=== PATIENT | male | born 1980 | race Caucasian/White ===

== ENCOUNTER 2021-10-01 21:08 | Inpatient (IN) | payer OTHER ==
[2021-10-01] MEDS ORDERED: LIDOCAINE HCL 2% JELLY (5 ML/TUBE) ONE (22:11)
[2021-10-01] MEDS ORDERED: LIDOCAINE HCL 2% JELLY (5 ML/TUBE) TP ONE (22:13)
[2021-10-01 22:38] LABS: BASO % 0.7 % (0-2.0); EOS % 2.8 % (0-4.5); HEMOGLOBIN 13.1 GM/dL (11.7-16.9); LYMPH % 20.8 % (8-40); MCH 29.2 pg (25.7-33.7); MCHC 34.4 g/dl (32.0-35.9); MEAN CELL VOLUME 84.8 fl (80-96); MEAN PLT VOLUME 7.8 fl (7.5-11.1); MONO % 6.8 % (3.8-10.2); NEUT % 68.9 % (42.8-82.8); PLATELET COUNT 263 10^3/uL (134-434); RBC 4.48 M/mm3 (4.00-5.60); RDW 12.5 % (11.9-15.9); WHITE BLOOD COUNT 10.4 K/mm3 (4.0-10.0)
[2021-10-01 22:56] LABS: CHLORIDE 100 mmol/L (98-107); SODIUM 138 mmol/L (136-145)
[2021-10-01 22:58] LABS: CALCIUM 8.3 mg/dL (8.5-10.1)
[2021-10-01 22:59] LABS: ALBUMIN 3.5 g/dl (3.4-5.0); BLOOD UREA NITROGEN 28.6 mg/dL (7-18); CO2 32 mmol/L (21-32); GLUCOSE,RANDOM 148 mg/dL (74-106)
[2021-10-01 23:02] LABS: CREATININE 2.8 mg/dL (0.55-1.3); SGOT/AST 37 U/L (15-37); SGPT/ALT 35 U/L (13-61)
[2021-10-01 23:04] LABS: BILIRUBIN,TOTAL 0.4 mg/dL (0.2-1)
[2021-10-01 23:05] LABS: ALK PHOS 91 U/L (45-117)
[2021-10-01] MEDS ORDERED: TETRACAINE/BENZOCAINE/BUTAMBEN 20 GM SPR TP ONE (23:06)
[2021-10-01] MEDS ORDERED: LABETALOL HCL 5 MG/1 ML (100MG/20 ML VIAL) IVPUSH ONE (23:14)
[2021-10-01] MEDS ORDERED: LABETALOL HCL 5 MG/1 ML (200MG/40ML VIAL) IVPB ONE (23:25)
[2021-10-02 00:13] LABS: ANION GAP 7 MMOL/L (8-16)
[2021-10-02] MEDS ORDERED: LABETALOL HCL 5 MG/1 ML (100MG/20 ML VIAL) IVPUSH ONE (00:34)
[2021-10-02] MEDS ORDERED: POTASSIUM CHLORIDE TABS 20 MEQ TABLET.ER (FP) PO ONE ×7 (00:55→08:26)
[2021-10-02 01:55] LABS: EPI CELLS 2 /uL (0-25.1); HYALINE CASTS 0 /uL (0-3.1); PH,URINE 6.5 (5.0-8.0); URINE APPEARANCE CLEAR; URINE BACTERIA 6 /uL (0-1359); URINE BILIRUBIN NEGATIVE (NEGATIVE); URINE COLOR YELLOW; URINE GLUCOSE (UA) NEGATIVE (NEGATIVE); URINE KETONE NEGATIVE (NEGATIVE); URINE LEUK ESTERASE NEGATIVE (NEGATIVE); URINE NITRITE NEGATIVE (NEGATIVE); URINE PROTEIN 2+ (NEGATIVE); URINE RBC 15 /uL (0-23.9); URINE UROBILINOGEN 0.2 mg/dL (0.2-1.0); URINE WBC 2 /uL (0-25.8)
[2021-10-02 02:15] LABS: MAGNESIUM 2.1 mg/dL (1.8-2.4)
[2021-10-02] MEDS ORDERED: LABETALOL IN NACL, ISO-OSMOTIC 300 MG/300 ML BAG IV SCH (04:30)
[2021-10-02] MEDS ORDERED: SODIUM CHLORIDE IV SCH (04:30)
[2021-10-02] MEDS ORDERED: LABETALOL HCL IV SCH (04:30)
[2021-10-02] MEDS ORDERED: KCL 10 MEQ IVPB 10 MEQ/100 ML INFUS.BAG IVPB ONE ×3 (05:13→08:49)
[2021-10-02] MEDS ORDERED: HEPARIN NA (PORCINE) 5,000 UNITS/ML 1ML VIAL ONE (05:13)
[2021-10-02] MEDS: KCL 10 MEQ IVPB 10 MEQ/100 ML INFUS.BAG IVPB SCH ×3 (05:45→09:00)
[2021-10-02] MEDS ORDERED: HEPARIN NA (PORCINE) 5,000 UNITS/ML 1ML VIAL SQ SCH (06:00)
[2021-10-02 06:38] LABS: HEMATOCRIT 36.2 % (35.4-49); HEMOGLOBIN 12.4 GM/dL (11.7-16.9); MCH 29.2 pg (25.7-33.7); MCHC 34.2 g/dl (32.0-35.9); MEAN CELL VOLUME 85.4 fl (80-96); MEAN PLT VOLUME 8.3 fl (7.5-11.1); PLATELET COUNT 228 10^3/uL (134-434); RBC 4.23 M/mm3 (4.00-5.60); WHITE BLOOD COUNT 9.5 K/mm3 (4.0-10.0)
[2021-10-02 06:49] LABS: ALBUMIN 3.4 g/dl (3.4-5.0); CALCIUM 7.8 mg/dL (8.5-10.1)
[2021-10-02 06:50] LABS: BLOOD UREA NITROGEN 27.1 mg/dL (7-18)
[2021-10-02 06:53] LABS: CREATININE 2.5 mg/dL (0.55-1.3); PHOSPHOROUS 3.2 mg/dL (2.5-4.9)
[2021-10-02 06:54] LABS: BILIRUBIN,TOTAL 0.5 mg/dL (0.2-1); TOT PROT 6.8 g/dl (6.4-8.2)
[2021-10-02] MEDS ORDERED: KCL 10 MEQ IVPB 10 MEQ/100 ML INFUS.BAG IVPB SCH (08:15)
[2021-10-02] MEDS ORDERED: hydrALAZINE HCL 10 MG TABLET PO SCH (10:00)
[2021-10-02] MEDS ORDERED: amLODIPine BESYLATE 5 MG TABLET (FP) PO SCH (10:00)
[2021-10-02] MEDS ORDERED: amLODIPine BESYLATE 5 MG TABLET (FP) ONE (10:23)
[2021-10-02] MEDS: hydrALAZINE HCL 10 MG TABLET PO SCH ×2 (15:00→22:24)
[2021-10-02] MEDS ORDERED: SODIUM CHLORIDE NASAL SPRAY 44 ML BOTTLE NS PRN (16:50)
[2021-10-03 04:23] VITALS: BMI 28.8
[2021-10-03] MEDS: hydrALAZINE HCL 10 MG TABLET PO SCH ×3 (06:43→21:04)
[2021-10-03] MEDS: amLODIPine BESYLATE 10 MG TABLET (FP) PO SCH (09:35)
[2021-10-03 12:46] LABS: BASO % 0.2 % (0-2.0); HEMOGLOBIN 13.2 GM/dL (11.7-16.9); LYMPH % 12.1 % (8-40); MCH 29.2 pg (25.7-33.7); MCHC 33.8 g/dl (32.0-35.9); MEAN CELL VOLUME 86.6 fl (80-96); MEAN PLT VOLUME 8.5 fl (7.5-11.1); NEUT % 79.7 % (42.8-82.8); PLATELET COUNT 253 10^3/uL (134-434); WHITE BLOOD COUNT 8.3 K/mm3 (4.0-10.0)
[2021-10-03 13:12] LABS: ALBUMIN 3.5 g/dl (3.4-5.0); MAGNESIUM 2.2 mg/dL (1.8-2.4)
[2021-10-03 13:15] LABS: BILIRUBIN,TOTAL 0.5 mg/dL (0.2-1); CREATININE 2.3 mg/dL (0.55-1.3)
[2021-10-03 13:16] LABS: TOT PROT 6.9 g/dl (6.4-8.2)
[2021-10-03] MEDS: LABETALOL HCL 100 MG TABLET (FP) PO SCH ×2 (14:26→21:04)
[2021-10-03] MEDS: POTASSIUM CHLORIDE TABS 20 MEQ TABLET.ER (FP) PO SCH ×2 (15:50→21:04)
[2021-10-04] MEDS: hydrALAZINE HCL 10 MG TABLET PO SCH ×4 (05:57→17:50)
[2021-10-04] MEDS: LABETALOL HCL 100 MG TABLET (FP) PO SCH ×3 (08:59→21:03)
[2021-10-04] MEDS: amLODIPine BESYLATE 10 MG TABLET (FP) PO SCH (09:01)
[2021-10-04] MEDS: POTASSIUM CHLORIDE TABS 20 MEQ TABLET.ER (FP) PO SCH (09:01)
[2021-10-04 09:15] LABS: BASO % 0.6 % (0-2.0); EOS % 3.9 % (0-4.5); HEMATOCRIT 38.8 % (35.4-49); HEMOGLOBIN 13.1 GM/dL (11.7-16.9); MCH 29.2 pg (25.7-33.7); MCHC 33.9 g/dl (32.0-35.9); MEAN PLT VOLUME 8.2 fl (7.5-11.1); MONO % 6.7 % (3.8-10.2); NEUT % 67.8 % (42.8-82.8); PLATELET COUNT 255 10^3/uL (134-434); WHITE BLOOD COUNT 8.2 K/mm3 (4.0-10.0)
[2021-10-04 09:37] LABS: ALBUMIN 3.5 g/dl (3.4-5.0); CALCIUM 8.2 mg/dL (8.5-10.1)
[2021-10-04 09:38] LABS: BLOOD UREA NITROGEN 26.7 mg/dL (7-18); MAGNESIUM 2.2 mg/dL (1.8-2.4)
[2021-10-04 09:41] LABS: CREATININE 2.5 mg/dL (0.55-1.3)
[2021-10-04 09:42] LABS: BILIRUBIN,TOTAL 0.7 mg/dL (0.2-1)
[2021-10-05] MEDS: hydrALAZINE HCL 10 MG TABLET PO SCH ×3 (00:46→11:26)
[2021-10-05 09:06] LABS: BASO % 0.4 % (0-2.0); EOS % 3.4 % (0-4.5); HEMATOCRIT 37.2 % (35.4-49); HEMOGLOBIN 12.7 GM/dL (11.7-16.9); LYMPH % 17.3 % (8-40); MCH 29.3 pg (25.7-33.7); MCHC 34.1 g/dl (32.0-35.9); MEAN PLT VOLUME 8.5 fl (7.5-11.1); MONO % 7.1 % (3.8-10.2); NEUT % 71.8 % (42.8-82.8); PLATELET COUNT 270 10^3/uL (134-434); RBC 4.33 M/mm3 (4.00-5.60); RDW 12.8 % (11.9-15.9); WHITE BLOOD COUNT 8.7 K/mm3 (4.0-10.0)
[2021-10-05 09:36] LABS: ALBUMIN 3.2 g/dl (3.4-5.0)
[2021-10-05 09:37] LABS: BLOOD UREA NITROGEN 29.8 mg/dL (7-18); CALCIUM 8.1 mg/dL (8.5-10.1); MAGNESIUM 2.1 mg/dL (1.8-2.4)
[2021-10-05 09:39] LABS: CREATININE 2.4 mg/dL (0.55-1.3)
[2021-10-05 09:41] LABS: BILIRUBIN,TOTAL 0.7 mg/dL (0.2-1); TOT PROT 6.6 g/dl (6.4-8.2)
[2021-10-05] MEDS: LABETALOL HCL 100 MG TABLET (FP) PO SCH (10:02)
[2021-10-05] MEDS: amLODIPine BESYLATE 10 MG TABLET (FP) PO SCH (10:03)
[2021-10-05 16:20] VITALS: BP 153/99; PULSE 85; TEMP 98.2
[2021-10-05] MEDS ORDERED: ATORVASTATIN CA 40 MG TABLET (FP) PO SCH (22:00)
[2021-10-06 10:07] LABS: ANTIGLOMERULAR BASEMENT MEN.AB 4 units (0-20)
[2021-10-06 17:07] LABS: ATYPICAL pANCA <1:20 titer (Neg:<1:20); C-ANCA <1:20 titer (Neg:<1:20)
[2021-10-08 14:07] LABS: RENIN ACTIVITY(PRA) 5.854 ng/mL/hr (0.167-5.380)
== END 2021-10-05 16:37 | disposition home or self-care (01) | DRG 199 ==
LOC: JER 21:08 → JERBED 10-02 04:43 → J8W 10-02 19:40
PROVIDERS: ADMIT Internal Medicine; ATTEND Nurse Practitioner Acute Care
DX: I16.0 Hypertensive urgency (principal); R04.0 Epistaxis; E87.6 Hypokalemia; N17.9 Acute kidney failure, unspecified; I12.9 Hypertensive chronic kidney disease with stage 1 through stage 4 chronic kidney disease, or unspecified chronic kidney disease; N18.9 Chronic kidney disease, unspecified; R77.8 Other specified abnormalities of plasma proteins; E78.00 Pure hypercholesterolemia, unspecified
CPT/HCPCS: 36415; 71045-TC-FY; 76775-TC; 80048; 80053; 80061; 81003; 82088; 82550; 82553; 83036; 83516; 83520; 83735; 83970; 84100; 84244; 84443; 84484; 85025; 85027; 86038; 86160; 86225; 86256; 93005; 93010; 93306-TC; 99285-25; C9803; J1644; U0003; U0005

== ENCOUNTER 2023-01-29 22:27 | Observation (INO) | payer OTHER ==
[2023-01-29 22:37] VITALS: BMI 29.7
[2023-01-29] MEDS ORDERED: dilTIAZem HCL 125 MG/25 ML - 25 ML VIAL ONE (22:58)
[2023-01-29 23:01] LABS: EOS % 1.7 % (0-4.5); HEMATOCRIT 40.9 % (35.4-49); HEMOGLOBIN 13.9 GM/dL (11.7-16.9); LYMPH % 12.5 % (8-40); MCH 29.1 pg (25.7-33.7); MCHC 34.1 g/dl (32.0-35.9); MEAN CELL VOLUME 85.4 fl (80-96); MEAN PLT VOLUME 8.3 fl (7.5-11.1); NEUT % 77.8 % (42.8-82.8); PLATELET COUNT 226 10^3/uL (134-434); RBC 4.79 M/mm3 (4.00-5.60); RDW 13.1 % (11.9-15.9); WHITE BLOOD COUNT 12.8 K/mm3 (4.0-10.0)
[2023-01-29 23:08] LABS: INR 1.12 (0.83-1.09)
[2023-01-29 23:11] LABS: ACTIVATED PTT 36.5 SECONDS (25.2-36.5)
[2023-01-29] MEDS ORDERED: dilTIAZem HCL 50 MG/10 ML - 10 ML VIAL IVPUSH ONE ×2 (23:11→23:48)
[2023-01-29 23:15] LABS: CHLORIDE 98 mmol/L (98-107); SODIUM 135 mmol/L (136-145)
[2023-01-29 23:17] LABS: CALCIUM 8.2 mg/dL (8.5-10.1)
[2023-01-29 23:18] LABS: ALBUMIN 3.7 g/dl (3.4-5.0); CO2 30 mmol/L (21-32); GLUCOSE,RANDOM 199 mg/dL (74-106); MAGNESIUM 2.3 mg/dL (1.8-2.4)
[2023-01-29 23:21] LABS: BLOOD UREA NITROGEN 44.2 mg/dL (7-18); CREATININE 3.8 mg/dL (0.55-1.3); SGOT/AST 51 U/L (15-37); SGPT/ALT 46 U/L (13-61)
[2023-01-29 23:22] LABS: TOT PROT 7.3 g/dl (6.4-8.2)
[2023-01-29 23:23] LABS: BILIRUBIN,TOTAL 0.6 mg/dL (0.2-1)
[2023-01-29 23:24] LABS: ALK PHOS 82 U/L (45-117); ANION GAP 7 MMOL/L (8-16); POTASSIUM 2.9 mmol/L (3.5-5.1)
[2023-01-29] MEDS ORDERED: POTASSIUM CHLORIDE TABS 20 MEQ TABLET.ER (FP) PO ONE ×3 (23:26→23:35)
[2023-01-29] MEDS ORDERED: LABETALOL HCL 100 MG TABLET (FP) PO ONE (23:30)
[2023-01-29] MEDS ORDERED: hydrALAZINE HCL 10 MG TABLET PO ONE (23:31)
[2023-01-29] MEDS ORDERED: LABETALOL HCL 100 MG TABLET (FP) ONE (23:35)
[2023-01-29] MEDS ORDERED: hydrALAZINE HCL 10 MG TABLET ONE (23:36)
[2023-01-30] MEDS: KCL 10 MEQ IVPB 10 MEQ/100 ML INFUS.BAG IVPB SCH ×3 (00:07→02:41)
[2023-01-30] MEDS ORDERED: KCL 10 MEQ IVPB 10 MEQ/100 ML INFUS.BAG IVPB ONE (03:05)
[2023-01-30] MEDS ORDERED: dilTIAZem HCL 50 MG/10 ML - 10 ML VIAL ONE (03:34)
[2023-01-30] MEDS ORDERED: dilTIAZem HCL 125 MG/25 ML - 25 ML VIAL ONE ×2 (03:34)
[2023-01-30] MEDS ORDERED: METOPROLOL TARTRATE 25 MG TABLET (FP) PO SCH (03:45)
[2023-01-30] MEDS ORDERED: METOPROLOL TARTRATE 25 MG TABLET (FP) ONE (04:07)
[2023-01-30 04:48] LABS: EPI CELLS 3 /uL (0-25.1); HYALINE CASTS 0 /uL (0-3.1); PH,URINE 6.5 (5.0-8.0); URINE APPEARANCE CLEAR; URINE BACTERIA 4 /uL (0-1359); URINE BILIRUBIN NEGATIVE (NEGATIVE); URINE COLOR YELLOW; URINE GLUCOSE (UA) NEGATIVE (NEGATIVE); URINE KETONE NEGATIVE (NEGATIVE); URINE LEUK ESTERASE NEGATIVE (NEGATIVE); URINE NITRITE NEGATIVE (NEGATIVE); URINE PROTEIN 2+ (NEGATIVE); URINE RBC 16 /uL (0-23.9); URINE UROBILINOGEN 0.2 mg/dL (0.2-1.0); URINE WBC 2 /uL (0-25.8)
[2023-01-30 04:52] LABS: OPIATES, URI NEGATIVE (NEGATIVE); URINE AMPHETAMINES NEGATIVE (NEGATIVE)
[2023-01-30 04:53] LABS: METHADONE, UR NEGATIVE (NEGATIVE); PHENCYCLIDINE,URINE NEGATIVE (NEGATIVE)
[2023-01-30 05:01] LABS: COCAINE, UR NEGATIVE (NEGATIVE); URINE BARBITURATES NEGATIVE (NEGATIVE); URINE BENZODIAZEPINES NEGATIVE (NEGATIVE)
[2023-01-30 08:26] LABS: BASO % 0.7 % (0-2.0); EOS % 1.4 % (0-4.5); HEMATOCRIT 38.5 % (35.4-49); HEMOGLOBIN 13.3 GM/dL (11.7-16.9); LYMPH % 14.8 % (8-40); MCH 29.5 pg (25.7-33.7); MCHC 34.4 g/dl (32.0-35.9); MEAN CELL VOLUME 85.6 fl (80-96); MEAN PLT VOLUME 8.6 fl (7.5-11.1); MONO % 5.9 % (3.8-10.2); NEUT % 77.2 % (42.8-82.8); PLATELET COUNT 207 10^3/uL (134-434); RDW 13.1 % (11.9-15.9); WHITE BLOOD COUNT 9.3 K/mm3 (4.0-10.0)
[2023-01-30 08:48] LABS: POTASSIUM 3.4 mmol/L (3.5-5.1)
[2023-01-30 08:49] LABS: CALCIUM 7.8 mg/dL (8.5-10.1)
[2023-01-30 08:50] LABS: BLOOD UREA NITROGEN 41.7 mg/dL (7-18)
[2023-01-30 08:53] LABS: CREATININE 3.2 mg/dL (0.55-1.3)
[2023-01-30] MEDS: LACTATED RINGERS SOLUTION 1,000 ML/1,000 ML INFUS.BAG IV SCH ×2 (10:26→20:00)
[2023-01-30] MEDS: LABETALOL HCL 200 MG TABLET (FP) PO SCH ×2 (10:26→21:10)
[2023-01-30] MEDS: amLODIPine BESYLATE 10 MG TABLET (FP) PO SCH (10:26)
[2023-01-30] MEDS: ASPIRIN COATED 81 MG TABLET.EC PO SCH (10:27)
[2023-01-30] MEDS: hydrALAZINE HCL 25 MG TABLET (FP) PO SCH ×2 (14:34→21:10)
[2023-01-30] MEDS ORDERED: ATORVASTATIN CA 40 MG TABLET (FP) PO SCH (22:00)
[2023-01-31] MEDS: hydrALAZINE HCL 25 MG TABLET (FP) PO SCH ×2 (05:41→14:10)
[2023-01-31] MEDS: ASPIRIN COATED 81 MG TABLET.EC PO SCH (09:04)
[2023-01-31] MEDS: LABETALOL HCL 200 MG TABLET (FP) PO SCH (09:05)
[2023-01-31] MEDS: amLODIPine BESYLATE 10 MG TABLET (FP) PO SCH (09:05)
[2023-01-31 10:54] VITALS: BP 150/90; PULSE 88; RESP 20; TEMP 97.6
== END 2023-01-31 15:07 | disposition home or self-care (01) ==
LOC: JER 22:27 → JERBED 23:36 → INTOOBSV 23:36 → J4W 01-30 05:06
PROVIDERS: ADMIT Internal Medicine; ATTEND Internal Medicine
PROC: 3E033GC Introduction of Other Therapeutic Substance into Peripheral Vein, Percutaneous Approach (ICD-10-PCS; principal; 2023-01-29)
PROC: 3E0337Z Introduction of Electrolytic and Water Balance Substance into Peripheral Vein, Percutaneous Approach (ICD-10-PCS; 2023-01-29)
DX: I13.10 Hypertensive heart and chronic kidney disease without heart failure, with stage 1 through stage 4 chronic kidney disease, or unspecified chronic kidney disease (principal); N18.9 Chronic kidney disease, unspecified; R00.2 Palpitations; I48.91 Unspecified atrial fibrillation; I16.0 Hypertensive urgency; N17.9 Acute kidney failure, unspecified
CPT/HCPCS: 36415; 71045-TC-FY; 76856-TC; 80048; 80053; 80307; 81003; 82088; 82384; 83036; 83735; 83935; 84244; 84300; 84443; 84484; 85025; 85610; 85730; 93005; 93010; 96361; 96365; 96367; 96375; 96376; 99285-25; C9803-CS; G0378; U0003; U0005

== ENCOUNTER 2023-04-14 16:04 | Emergency (ER) | payer OTHER ==
[2023-04-14 16:32] VITALS: BMI 29.7
[2023-04-14] MEDS ORDERED: LABETALOL HCL 200 MG TABLET (FP) PO ONE ×2 (17:31→18:53)
[2023-04-14 18:01] LABS: BASO % 0.5 % (0-2.0); EOS % 3.7 % (0-4.5); HEMATOCRIT 40.2 % (35.4-49); HEMOGLOBIN 13.9 GM/dL (11.7-16.9); LYMPH % 15.5 % (8-40); MCH 28.6 pg (25.7-33.7); MCHC 34.7 g/dl (32.0-35.9); MEAN CELL VOLUME 82.5 fl (80-96); MEAN PLT VOLUME 7.6 fl (7.5-11.1); MONO % 6.1 % (3.8-10.2); NEUT % 74.2 % (42.8-82.8); PLATELET COUNT 343 10^3/uL (134-434); RBC 4.88 M/mm3 (4.00-5.60); RDW 13.3 % (11.9-15.9); WHITE BLOOD COUNT 10.2 K/mm3 (4.0-10.0)
[2023-04-14] MEDS ORDERED: LABETALOL HCL 200 MG TABLET (FP) ONE ×2 (18:03→18:56)
[2023-04-14 18:15] LABS: POTASSIUM 3.5 mmol/L (3.5-5.1)
[2023-04-14 18:17] LABS: ALBUMIN 3.8 g/dl (3.4-5.0); BLOOD UREA NITROGEN 44.3 mg/dL (7-18)
[2023-04-14 18:20] LABS: CREATININE 3.3 mg/dL (0.55-1.3)
[2023-04-14 18:22] LABS: BILIRUBIN,TOTAL 0.3 mg/dL (0.2-1); TOT PROT 7.7 g/dl (6.4-8.2)
[2023-04-14 18:43] LABS: EPI CELLS 4 /uL (0-25.1); HYALINE CASTS 0 /uL (0-3.1); PH,URINE 5.5 (5.0-8.0); URINE APPEARANCE CLEAR; URINE BACTERIA 7 /uL (0-1359); URINE BILIRUBIN NEGATIVE (NEGATIVE); URINE COLOR YELLOW; URINE GLUCOSE (UA) NEGATIVE (NEGATIVE); URINE KETONE NEGATIVE (NEGATIVE); URINE LEUK ESTERASE NEGATIVE (NEGATIVE); URINE NITRITE NEGATIVE (NEGATIVE); URINE PROTEIN 3+ (NEGATIVE); URINE RBC 31 /uL (0-23.9); URINE UROBILINOGEN 0.2 mg/dL (0.2-1.0); URINE WBC 2 /uL (0-25.8)
[2023-04-14] MEDS ORDERED: amLODIPine BESYLATE 10 MG TABLET (FP) PO ONE (18:53)
[2023-04-14] MEDS ORDERED: amLODIPine BESYLATE 10 MG TABLET (FP) ONE (18:56)
[2023-04-14] MEDS ORDERED: SODIUM CHLORIDE 0.9% 500 ML INFUS.BAG IV ONE (19:41)
[2023-04-14 20:12] VITALS: BP 175/116; PULSE 71; RESP 16; TEMP 98.4
== END 2023-04-14 20:35 | disposition home or self-care (01) ==
LOC: JER 16:04
DX: I12.9 Hypertensive chronic kidney disease with stage 1 through stage 4 chronic kidney disease, or unspecified chronic kidney disease (principal); N18.9 Chronic kidney disease, unspecified
CPT/HCPCS: 36415; 80053; 81003; 85025; 93005; 93010; 99284-25